=== PATIENT | female | born 1985 | race Caucasian/White ===

== ENCOUNTER 2017-09-20 07:11 | Emergency (ER) | payer BC ==
[~2017-09-20] VITALS: Ht 160 cm; Wt 63.5 kg
[~2017-09-20 07:11] MED LIST: ACETAMINOPHEN-1 EAC1 PO; ALEVE220 MG PO; AZO1 EACH MC; BCP; BUTALB-APAP-CA1 EACH PO; CEFDINIR300 MG PO; CIPRO500 MG PO; CIPROFLOXACIN500 M1 PO; DOXYCYCLINE 10100 M1 PO; FLEXERIL PO; HYDROCODONE-AP1 EAC6 PO; IBUPROFEN 800800 M1 PO; IBUPROFEN 800800 MG PO; LIPITOR 20 MG T20 M1 PO; MEDROLDOSEPACK PO; MOBIC15 MG PO; NAPROSYN500 MG PO; NORCO 5-325 TA1 EAC1 PO; NORCO 5-325 TA1 EACH PO; PHENERGAN 25 MG25 M1 PO; PYRIDIUM100 M1 PO; PYRIDIUM200 M2 PO; ROBAXIN 750 MG750 M1 PO; ROBAXIN500 MG PO; SAVELLA50 MG PO; TRAMADOL 50 MG50 MG PO; ZOFRAN ODT4 MG PO; ZOFRAN4 MG PO
[2017-09-20 08:48] VITALS: BP 121/79
== END 2017-09-20 08:49 | disposition home or self-care (01) ==
LOC: M.ERS 07:11
DX: R51 Headache (principal); F17.210 Nicotine dependence, cigarettes, uncomplicated; E78.00 Pure hypercholesterolemia, unspecified; Z88.2 Allergy status to sulfonamides; Z88.8 Allergy status to other drugs, medicaments and biological substances; Z90.710 Acquired absence of both cervix and uterus; Z98.890 Other specified postprocedural states; Z90.49 Acquired absence of other specified parts of digestive tract

== ENCOUNTER 2017-11-24 15:15 | Emergency (ER) | payer BC ==
[~2017-11-24] VITALS: Ht 160 cm; Wt 63.5 kg
[2017-11-24 15:27] LABS: URINE BILIRUBIN NEGATIVE (Negative); URINE BLOOD NEGATIVE (Negative); URINE CLARITY CLEAR; URINE COLOR YELLOW; URINE GLUCOSE-RANDOM NEGATIVE (Negative); URINE KETONES NEGATIVE (Negative); URINE LEUKOCYTES-REFLEX NEGATIVE (Negative); URINE NITRITE-REFLEX NEGATIVE (Negative); URINE PROTEIN NEGATIVE (Negative); URINE SPECIFIC GRAVITY <= 1.005 (1.005-1.030); URINE UROBILINOGEN 0.2 E.U./dl (0.2-1.0)
[2017-11-24] MEDS ORDERED: HYDROCODONE-AP1 EAC6 PO (15:59)
[2017-11-24] MEDS ORDERED: MEDROLDOSEPACK PO (15:59)
[2017-11-24] MEDS ORDERED: ROBAXIN 750 MG750 M1 PO (15:59)
[2017-11-24 16:14] VITALS: BP 90/59
== END 2017-11-24 16:15 | disposition home or self-care (01) ==
LOC: M.ERS 15:15
PROVIDERS: Physician Assistant
DX: M54.5 Low back pain (principal); E78.00 Pure hypercholesterolemia, unspecified; G43.909 Migraine, unspecified, not intractable, without status migrainosus; F17.210 Nicotine dependence, cigarettes, uncomplicated; Z90.710 Acquired absence of both cervix and uterus; Z87.442 Personal history of urinary calculi; Z90.49 Acquired absence of other specified parts of digestive tract; Z90.89 Acquired absence of other organs; Z88.2 Allergy status to sulfonamides; Z91.018 Allergy to other foods; Z88.8 Allergy status to other drugs, medicaments and biological substances

== ENCOUNTER 2018-01-19 21:04 | Emergency (ER) | payer OTHER ==
[~2018-01-19] VITALS: Ht 162.6 cm; Wt 61.2 kg
[2018-01-19] MEDS ORDERED: TRAMADOL 50 MG50 MG (21:15)
[2018-01-19 21:33] LABS: ABSOLUTE BASOPHILS 0.1 thou/uL (0.0-0.2); ABSOLUTE EOSINOPHILS 0.2 thou/uL (0.0-0.7); ABSOLUTE LYMPHOCYTES 3.9 thou/uL (0.8-5.3); ABSOLUTE MONOCYTES 0.7 thou/uL (0.0-1.2); ABSOLUTE NEUTROPHILS 4.2 thou/uL (1.6-8.1); EOSINOPHILS 2.1 %; HEMATOCRIT 41.1 % (37.0-47.0); HEMOGLOBIN 14.4 gm/dL (12.0-15.0); LYMPHOCYTES 42.7 %; MCH 33.1 pg (26.0-34.0); MCV 94.5 fL (80.0-100.0); MONOCYTES 7.9 %; MPV 7.4 fl. (7.2-11.1); NUCLEATED RBCS 0 /100WBC; PLATELET COUNT* 236 thou/uL (150-400); POLYS 46.3 %; RBC 4.34 mil/uL (4.20-5.00); RDW-CV 12.4 % (10.5-14.5); WBC 9.1 thou/uL (4.0-11.0)
[2018-01-19 21:34] LABS: URINE BILIRUBIN NEGATIVE (Negative); URINE BLOOD NEGATIVE (Negative); URINE CLARITY CLEAR; URINE COLOR YELLOW; URINE GLUCOSE-RANDOM NEGATIVE (Negative); URINE KETONES NEGATIVE (Negative); URINE LEUKOCYTES-REFLEX NEGATIVE (Negative); URINE NITRITE-REFLEX NEGATIVE (Negative); URINE PROTEIN NEGATIVE (Negative); URINE UROBILINOGEN 0.2 E.U./dl (0.2-1.0)
[2018-01-19 21:42] LABS: CALCIUM 8.2 mg/dL (8.5-10.1); CREATININE 0.8 mg/dL (0.6-1.3); POTASSIUM 3.2 mmol/L (3.5-5.1)
[2018-01-19 21:47] LABS: ALBUMIN 4.1 g/dL (3.4-5.0); TOTAL BILIRUBIN 0.2 mg/dL (<0.1-1.0); TOTAL PROTEIN 7.9 g/dL (6.4-8.2)
[2018-01-19] MEDS ORDERED: BENTYL 20 MG TA20 M1 PO (22:30)
[2018-01-19] MEDS ORDERED: CITRATE OF MAG296 ML PO (22:30)
[2018-01-19 22:45] VITALS: BP 128/82
== END 2018-01-19 22:47 | disposition home or self-care (01) ==
LOC: M.ERS 21:04
PROVIDERS: Personal Emergency Response Attendant
DX: K59.00 Constipation, unspecified (principal); E78.00 Pure hypercholesterolemia, unspecified; F17.210 Nicotine dependence, cigarettes, uncomplicated; Z90.710 Acquired absence of both cervix and uterus; Z87.442 Personal history of urinary calculi; Z90.49 Acquired absence of other specified parts of digestive tract; G43.909 Migraine, unspecified, not intractable, without status migrainosus; Z88.1 Allergy status to other antibiotic agents; Z88.8 Allergy status to other drugs, medicaments and biological substances; Z91.018 Allergy to other foods

== ENCOUNTER 2018-02-24 10:18 | Emergency (ER) | payer OTHER ==
[~2018-02-24] VITALS: Ht 157.5 cm; Wt 63.5 kg
[~2018-02-24 10:18] MED LIST changes: +BENTYL 20 MG TA20 M1 PO; +CITRATE OF MAG296 ML PO; +TRAMADOL 50 MG50 MG
[2018-02-24] MEDS ORDERED: MEDROLDOSEPACK PO (11:11)
[2018-02-24 11:25] VITALS: BP 110/73
== END 2018-02-24 11:25 | disposition home or self-care (01) ==
LOC: M.ERS 10:18
DX: J02.9 Acute pharyngitis, unspecified (principal); G43.909 Migraine, unspecified, not intractable, without status migrainosus; E78.00 Pure hypercholesterolemia, unspecified; F17.210 Nicotine dependence, cigarettes, uncomplicated; Z88.1 Allergy status to other antibiotic agents; Z88.8 Allergy status to other drugs, medicaments and biological substances; Z91.018 Allergy to other foods; Z90.710 Acquired absence of both cervix and uterus; Z90.49 Acquired absence of other specified parts of digestive tract; Z87.442 Personal history of urinary calculi

== ENCOUNTER 2018-03-18 18:38 | Emergency (ER) | payer OTHER ==
[~2018-03-18] VITALS: Ht 162.6 cm; Wt 63.5 kg
[2018-03-18 19:16] LABS: ABSOLUTE BASOPHILS 0.1 thou/uL (0.0-0.2); ABSOLUTE EOSINOPHILS 0.1 thou/uL (0.0-0.7); ABSOLUTE LYMPHOCYTES 2.6 thou/uL (0.8-5.3); ABSOLUTE MONOCYTES 0.8 thou/uL (0.0-1.2); ABSOLUTE NEUTROPHILS 3.8 thou/uL (1.6-8.1); BASOPHILS 0.9 %; EOSINOPHILS 1.2 %; HEMATOCRIT 41.7 % (37.0-47.0); HEMOGLOBIN 14.3 gm/dL (12.0-15.0); LYMPHOCYTES 34.8 %; MCHC 34.4 g/dL (28.0-37.0); MCV 95.9 fL (80.0-100.0); MONOCYTES 11.2 %; MPV 7.5 fl. (7.2-11.1); NUCLEATED RBCS 0 /100WBC; PLATELET COUNT* 235 thou/uL (150-400); POLYS 51.9 %; RBC 4.34 mil/uL (4.20-5.00); RDW-CV 12.6 % (10.5-14.5); WBC 7.4 thou/uL (4.0-11.0)
[2018-03-18 19:29] LABS: CALCIUM 8.7 mg/dL (8.5-10.1); CREATININE 0.6 mg/dL (0.6-1.3); POTASSIUM 3.8 mmol/L (3.5-5.1)
[2018-03-18 19:34] LABS: ALBUMIN 3.9 g/dL (3.4-5.0); TOTAL BILIRUBIN 0.3 mg/dL (<0.1-1.0)
[2018-03-18 19:44] LABS: URINE BILIRUBIN NEGATIVE (Negative); URINE BLOOD TRACE (Negative); URINE CLARITY CLEAR; URINE COLOR YELLOW; URINE GLUCOSE-RANDOM NEGATIVE (Negative); URINE KETONES NEGATIVE (Negative); URINE LEUKOCYTES-REFLEX NEGATIVE (Negative); URINE NITRITE-REFLEX NEGATIVE (Negative); URINE PROTEIN NEGATIVE (Negative); URINE SPECIFIC GRAVITY 1.015 (1.005-1.030); URINE UROBILINOGEN 0.2 E.U./dl (0.2-1.0)
[2018-03-18] MEDS ORDERED: PROAIR HFA8.5 GM INH (19:44)
[2018-03-18] MEDS ORDERED: PROMETHAZINE V473 ML PO (19:44)
[2018-03-18] MEDS ORDERED: PHENERGAN12.5 M2 RECTAL (19:44)
[2018-03-18] MEDS ORDERED: KEFLEX500 M1 PO (19:44)
[2018-03-18] MEDS ORDERED: TESSALON PERLE100 MG PO (19:44)
[2018-03-18 19:51] LABS: BACTERIA-REFLEX 1-9 Few /HPF (None Seen); CASTS None Seen /LPF (None Seen); CRYSTALS None Seen /LPF (None Seen); SQUAMOUS >10 Many /LPF (0-3); URINE RBC 3-10 Few /HPF (0-2); URINE WBC-REFLEX 0-5 Rare /HPF (0-5)
[2018-03-18 19:57] VITALS: BP 100/54
== END 2018-03-18 19:58 | disposition home or self-care (01) ==
LOC: M.ERS 18:38
PROVIDERS: Physician Assistant
DX: J20.9 Acute bronchitis, unspecified (principal); R11.2 Nausea with vomiting, unspecified; E78.00 Pure hypercholesterolemia, unspecified; G43.909 Migraine, unspecified, not intractable, without status migrainosus; F17.210 Nicotine dependence, cigarettes, uncomplicated; Z90.710 Acquired absence of both cervix and uterus; Z87.442 Personal history of urinary calculi; Z90.49 Acquired absence of other specified parts of digestive tract; Z88.1 Allergy status to other antibiotic agents; Z91.018 Allergy to other foods

== ENCOUNTER 2018-04-17 15:42 | Emergency (ER) | payer BC ==
[~2018-04-17] VITALS: Ht 157.5 cm; Wt 63.5 kg
[~2018-04-17 15:42] MED LIST changes: +KEFLEX500 M1 PO; +PHENERGAN12.5 M2 RECTAL; +PROAIR HFA8.5 GM INH; +PROMETHAZINE V473 ML PO; +TESSALON PERLE100 MG PO
[2018-04-17 16:06] LABS: URINE CLARITY CLEAR; URINE COLOR AMBER
[2018-04-17 16:25] LABS: MUCUS None Seen strn/LPF (None Seen)
[2018-04-17 16:26] LABS: BACTERIA 1-9 Few /HPF (None Seen); CASTS None Seen /LPF (None Seen); CRYSTALS None Seen /LPF (None Seen); URINE RBC 3-10 Few /HPF (0-2); WBC CLUMPS Few (None Seen)
[2018-04-17 16:27] LABS: SQUAMOUS 4-10 Moderate /LPF (0-3)
[2018-04-17 16:28] LABS: ACETEST (KETONE CONFIRMATORY) Negative (Negative); ICTOTEST (BILI CONFIRMATORY) Negative (Negative); SSA (PROTEIN CONFIRMATORY) NEGATIVE (Negative); URINE REDUCING SUBSTANCE NEGATIVE (Negative); URINE SPECIFIC GRAVITY 1.014 (1.005-1.030)
[2018-04-17] MEDS ORDERED: NABUMETONE 750750 M1 PO (16:57)
[2018-04-17] MEDS ORDERED: ONDANSETRON HCL4 M2 PO (16:57)
[2018-04-17] MEDS ORDERED: LEVAQUIN 500 M500 M2 PO (16:57)
[2018-04-17] MEDS ORDERED: NORCO 5-325 TA1 EACH PO (16:57)
[2018-04-17 17:10] VITALS: BP 109/55
== END 2018-04-17 17:11 | disposition home or self-care (01) ==
LOC: M.ERS 15:42
PROVIDERS: Nurse Practitioner Family
DX: N39.0 Urinary tract infection, site not specified (principal); G43.909 Migraine, unspecified, not intractable, without status migrainosus; E78.00 Pure hypercholesterolemia, unspecified; Z90.49 Acquired absence of other specified parts of digestive tract; Z90.710 Acquired absence of both cervix and uterus; F17.210 Nicotine dependence, cigarettes, uncomplicated; Z88.1 Allergy status to other antibiotic agents; Z88.8 Allergy status to other drugs, medicaments and biological substances

== ENCOUNTER 2018-05-17 12:55 | Emergency (ER) | payer BC ==
[~2018-05-17] VITALS: Ht 162.6 cm; Wt 63.5 kg
[~2018-05-17 12:55] MED LIST changes: +LEVAQUIN 500 M500 M2 PO; +NABUMETONE 750750 M1 PO; +ONDANSETRON HCL4 M2 PO
[2018-05-17 13:24] LABS: URINE BILIRUBIN NEGATIVE (Negative); URINE BLOOD NEGATIVE (Negative); URINE CLARITY CLEAR; URINE COLOR YELLOW; URINE GLUCOSE-RANDOM NEGATIVE (Negative); URINE KETONES TRACE (Negative); URINE LEUKOCYTES-REFLEX NEGATIVE (Negative); URINE NITRITE-REFLEX NEGATIVE (Negative); URINE PROTEIN TRACE (Negative); URINE SPECIFIC GRAVITY 1.025 (1.005-1.030); URINE UROBILINOGEN 0.2 E.U./dl (0.2-1.0)
[2018-05-17] MEDS ORDERED: ZOFRAN ODT4 MG PO (13:44)
[2018-05-17 13:55] VITALS: BP 138/57
== END 2018-05-17 14:03 | disposition home or self-care (01) ==
LOC: M.ERS 12:55
PROVIDERS: Nurse Practitioner Family
DX: K52.9 Noninfective gastroenteritis and colitis, unspecified (principal); G43.909 Migraine, unspecified, not intractable, without status migrainosus; E78.00 Pure hypercholesterolemia, unspecified; F17.210 Nicotine dependence, cigarettes, uncomplicated; Z88.2 Allergy status to sulfonamides; Z88.8 Allergy status to other drugs, medicaments and biological substances; Z91.018 Allergy to other foods; Z90.710 Acquired absence of both cervix and uterus; Z87.442 Personal history of urinary calculi; Z90.49 Acquired absence of other specified parts of digestive tract

== ENCOUNTER 2018-09-03 22:54 | Emergency (ER) | payer OTHER ==
[~2018-09-03] VITALS: Ht 157.5 cm; Wt 63.5 kg
[2018-09-03 23:00] VITALS: BP 116/80
[2018-09-03 23:16] LABS: URINE BILIRUBIN NEGATIVE (Negative); URINE BLOOD 1+ (Negative); URINE CLARITY CLEAR; URINE COLOR YELLOW; URINE GLUCOSE-RANDOM NEGATIVE (Negative); URINE KETONES NEGATIVE (Negative); URINE LEUKOCYTES-REFLEX NEGATIVE (Negative); URINE NITRITE-REFLEX NEGATIVE (Negative); URINE PROTEIN NEGATIVE (Negative); URINE UROBILINOGEN 0.2 E.U./dl (0.2-1.0)
[2018-09-03 23:22] LABS: ABSOLUTE BASOPHILS 0.1 thou/uL (0.0-0.2); ABSOLUTE EOSINOPHILS 0.2 thou/uL (0.0-0.7); ABSOLUTE LYMPHOCYTES 3.7 thou/uL (0.8-5.3); ABSOLUTE MONOCYTES 0.6 thou/uL (0.0-1.2); ABSOLUTE NEUTROPHILS 4.5 thou/uL (1.6-8.1); BASOPHILS 0.8 %; EOSINOPHILS 1.9 %; HEMOGLOBIN 13.6 gm/dL (12.0-15.0); LYMPHOCYTES 40.7 %; MCH 33.4 pg (26.0-34.0); MCHC 34.8 g/dL (28.0-37.0); MCV 96.1 fL (80.0-100.0); MONOCYTES 6.9 %; MPV 7.5 fl. (7.2-11.1); NUCLEATED RBCS 0 /100WBC; PLATELET COUNT* 225 thou/uL (150-400); POLYS 49.7 %; RBC 4.06 mil/uL (4.20-5.00); RDW-CV 12.7 % (10.5-14.5); WBC 9.1 thou/uL (4.0-11.0)
[2018-09-03 23:22] LABS: SQUAMOUS NONE SEEN /LPF (0-3); URINE RBC 0-2 Rare /HPF (0-2); URINE WBC-REFLEX None Seen /HPF (0-5)
[2018-09-03 23:23] LABS: BACTERIA-REFLEX None Seen /HPF (None Seen); CASTS None Seen /LPF (None Seen); CRYSTALS None Seen /LPF (None Seen)
[2018-09-03 23:26] LABS: CALCIUM 8.3 mg/dL (8.5-10.1); POTASSIUM 3.4 mmol/L (3.5-5.1)
[2018-09-03] MEDS ORDERED: PYRIDIUM200 M2 PO (23:38)
[2018-09-03] MEDS ORDERED: KEFLEX500 M1 PO (23:38)
[2018-09-03] MEDS ORDERED: HYDROCODON-ACE1 EAC7 PO (23:38)
== END 2018-09-03 23:46 | disposition home or self-care (01) ==
LOC: M.ERS 22:54
PROVIDERS: Personal Emergency Response Attendant
DX: R30.0 Dysuria (principal); E78.00 Pure hypercholesterolemia, unspecified; G43.909 Migraine, unspecified, not intractable, without status migrainosus; F17.210 Nicotine dependence, cigarettes, uncomplicated; Z88.2 Allergy status to sulfonamides; Z88.8 Allergy status to other drugs, medicaments and biological substances; Z91.018 Allergy to other foods; Z90.710 Acquired absence of both cervix and uterus; Z87.442 Personal history of urinary calculi; Z90.49 Acquired absence of other specified parts of digestive tract

== ENCOUNTER 2019-11-24 19:31 | Emergency (ER) | payer OTHER ==
[~2019-11-24] VITALS: Ht 157.5 cm; Wt 63.5 kg
[~2019-11-24 19:31] MED LIST changes: +HYDROCODON-ACE1 EAC7 PO
[2019-11-24 20:15] LABS: INFLUENZA A ANTIGEN Negative (Negative); INFLUENZA B ANTIGEN Negative (Negative)
[2019-11-24 20:57] VITALS: BP 117/79
== END 2019-11-24 20:57 | disposition left against medical advice (07) ==
LOC: M.ERS 19:31
PROVIDERS: Emergency Medicine
DX: Z53.21 Procedure and treatment not carried out due to patient leaving prior to being seen by health care provider (principal)

== ENCOUNTER 2020-09-18 12:53 | Emergency (ER) | payer OTHER ==
[~2020-09-18] VITALS: Ht 157.5 cm; Wt 68.0 kg
[2020-09-18] MEDS ORDERED: ONDANSETRON ODT4 MG PO (13:08)
[2020-09-18 13:19] LABS: URINE BILIRUBIN NEGATIVE (Negative); URINE BLOOD NEGATIVE (Negative); URINE CLARITY CLEAR; URINE COLOR YELLOW; URINE GLUCOSE-RANDOM NEGATIVE (Negative); URINE KETONES NEGATIVE (Negative); URINE LEUKOCYTES NEGATIVE (Negative); URINE NITRITE NEGATIVE (Negative); URINE PROTEIN NEGATIVE (Negative); URINE UROBILINOGEN 0.2 E.U./dl (0.2-1.0)
[2020-09-18 13:21] LABS: ABSOLUTE BASOPHILS 0.1 thou/uL (0.0-0.2); ABSOLUTE EOSINOPHILS 0.1 thou/uL (0.0-0.7); ABSOLUTE LYMPHOCYTES 5.2 thou/uL (0.8-5.3); ABSOLUTE MONOCYTES 0.8 thou/uL (0.0-1.2); ABSOLUTE NEUTROPHILS 3.5 thou/uL (1.6-8.1); BASOPHILS 0.6 %; EOSINOPHILS 1.5 %; HEMATOCRIT 40.6 % (37.0-47.0); HEMOGLOBIN 14.1 gm/dL (12.0-15.0); LYMPHOCYTES 53.8 %; MCH 33.2 pg (26.0-34.0); MCHC 34.6 g/dL (28.0-37.0); MCV 95.8 fL (80.0-100.0); MONOCYTES 8.4 %; MPV 7.5 fl. (7.2-11.1); NUCLEATED RBCS 0 /100WBC; PLATELET COUNT* 252 thou/uL (150-400); POLYS 35.7 %; RBC 4.24 mil/uL (4.20-5.00); RDW-CV 12.9 % (10.5-14.5); WBC 9.7 thou/uL (4.0-11.0)
[2020-09-18 13:27] LABS: AMP/METHAMP Negative (Negative); BARBITURATES POSITIVE (Negative); BENZODIAZEPINES Negative (Negative); COCAINE Negative (Negative); METHADONE Negative (Negative); OPIATES Negative (Negative); PCP Negative (Negative); THC Negative (Negative)
[2020-09-18 13:36] LABS: CREATININE 0.8 mg/dL (0.6-1.3); POTASSIUM 3.8 mmol/L (3.5-5.1)
[2020-09-18 13:41] LABS: ALBUMIN 3.8 g/dL (3.4-5.0); TOTAL BILIRUBIN 0.2 mg/dL (<0.1-1.0); TOTAL PROTEIN 6.9 g/dL (6.4-8.2)
[2020-09-18 15:46] VITALS: BP 128/84
--- NOTE | 2020-09-19 10:09 | EKG ---
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: : 1985 Requested By: Jorge Singer Order Number: [id number] MD: Hector Pop Measurements Intervals [place] Rate: 103 P: 50 UT: 186 QRS: 86 QRSD: 118 T: 33 QT: 379 QTc: 496 Interpretive Statements Sinus tachycardia Probable left atrial enlargement Incomplete right bundle branch block Low voltage, precordial leads No previous ECG available for comparison Electronically Signed On 09-19-2020 10:09:17 DIABETES PHYSICIAN by Hector Pop [email or web address] <ELECTRONICALLY SIGNED> By: Hector Pop MD, FAC 09/19/20 1009 1351 1351 Hector Pop MD, [facility] /EPI
== END 2020-09-18 15:47 | disposition home or self-care (01) ==
LOC: M.ERS 12:53
PROVIDERS: Emergency Medicine
DX: G43.809 Other migraine, not intractable, without status migrainosus (principal); F17.210 Nicotine dependence, cigarettes, uncomplicated; Z90.710 Acquired absence of both cervix and uterus; Z90.89 Acquired absence of other organs; Z79.899 Other long term (current) drug therapy; Z88.2 Allergy status to sulfonamides; Z91.018 Allergy to other foods

== ENCOUNTER 2020-11-11 00:23 | Emergency (ER) | payer OTHER ==
[~2020-11-11] VITALS: Ht 157.5 cm; Wt 66.2 kg
[~2020-11-11 00:23] MED LIST changes: +ONDANSETRON ODT4 MG PO
[2020-11-11] MEDS ORDERED: PROZAC20 MG PO (00:30)
[2020-11-11 00:42] LABS: ABSOLUTE BASOPHILS 0.1 thou/uL (0.0-0.2); ABSOLUTE LYMPHOCYTES 3.4 thou/uL (0.8-5.3); ABSOLUTE MONOCYTES 0.6 thou/uL (0.0-1.2); ABSOLUTE NEUTROPHILS 3.7 thou/uL (1.6-8.1); BASOPHILS 0.7 %; EOSINOPHILS 0.6 %; HEMATOCRIT 38.6 % (37.0-47.0); HEMOGLOBIN 13.3 gm/dL (12.0-15.0); LYMPHOCYTES 44.2 %; MCHC 34.6 g/dL (28.0-37.0); MCV 95.6 fL (80.0-100.0); MONOCYTES 7.4 %; MPV 7.2 fl. (7.2-11.1); NUCLEATED RBCS 0 /100WBC; PLATELET COUNT* 206 thou/uL (150-400); POLYS 47.1 %; RBC 4.04 mil/uL (4.20-5.00); RDW-CV 12.6 % (10.5-14.5); WBC 7.8 thou/uL (4.0-11.0)
[2020-11-11 00:55] LABS: APTT 30.6 Seconds (25.0-31.3); INR 1.1; PROTIME 11.4 Seconds (9.20-11.50)
[2020-11-11 01:09] LABS: CREATININE 0.9 mg/dL (0.6-1.3); POTASSIUM 3.7 mmol/L (3.5-5.1)
[2020-11-11 01:14] LABS: ALBUMIN 4.1 g/dL (3.4-5.0); TOTAL BILIRUBIN 0.3 mg/dL (<0.1-1.0); TOTAL PROTEIN 7.1 g/dL (6.4-8.2)
[2020-11-11 03:25] LABS: URINE BILIRUBIN NEGATIVE (Negative); URINE BLOOD NEGATIVE (Negative); URINE CLARITY CLEAR; URINE COLOR YELLOW; URINE GLUCOSE-RANDOM NEGATIVE (Negative); URINE KETONES NEGATIVE (Negative); URINE LEUKOCYTES-REFLEX NEGATIVE (Negative); URINE NITRITE-REFLEX NEGATIVE (Negative); URINE PROTEIN NEGATIVE (Negative); URINE UROBILINOGEN 0.2 E.U./dl (0.2-1.0)
[2020-11-11 03:33] LABS: AMP/METHAMP Negative (Negative); BARBITURATES POSITIVE (Negative); BENZODIAZEPINES Negative (Negative); COCAINE Negative (Negative); METHADONE Negative (Negative); OPIATES POSITIVE (Negative); PCP Negative (Negative); THC Negative (Negative)
[2020-11-11 03:49] VITALS: BP 102/58
--- NOTE | 2020-11-11 09:35 | EKG ---
[place] [address] ELECTROCARDIOGRAM REPORT Name: FILEMONJAMILWHIT N Room: [facility] [place])#: [id number] Admission: 11/11/20 Attend Phys: Discharge: 11/11/20 Date of : 83 Date of Service: 11/11/20 0027 Report #: [id number] THIS REPORT FOR: //name// [facility] ED Test Date: 2020-11-11 Test Time: 00:27:59 Pat Name: WHIT COLBERT Department: Room: Gender: Swager Operator: DERRICK Truong : 1985 Requested By: Anu Bower Order Number: [id number] MD: Jose Radford Measurements Intervals [place] Rate: 97 P: 42 SD: 169 QRS: 75 QRSD: 142 T: 24 QT: 404 QTc: 513 Interpretive Statements Sinus rhythm Right bundle branch block Compared to ECG 09/18/2020 13:51:11 Sinus tachycardia no longer present Electronically Signed On 11-11-2020 9:35:15 HIM ASSISTANT by Jose Radford [email or web address] <ELECTRONICALLY SIGNED> By: Jose Radford MD, [facility] 11/11/20 0935 0027 0027 Jose Radford MD, [facility] /EPI
--- NOTE | 2020-11-11 09:36 | EKG ---
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: DERRICK Truong : 1985 Requested By: Anu Bower Order Number: [id number] MD: oJse Radford Measurements Intervals [place] Rate: 93 P: 56 [place]: 208 QRS: 91 QRSD: 132 T: 40 QT: 400 QTc: 498 Interpretive Statements Sinus rhythm Right bundle branch block Compared to ECG 11/11/2020 00:27:59 no change Electronically Signed On 11-11-2020 9:36:12 CAP SIZER by Jose Radford [email or web address] <ELECTRONICALLY SIGNED> By: Jose Radford MD, [facility] 11/11/20 0936 0047 0047 Jose Radford MD, [facility] /EPI
== END 2020-11-11 03:49 | disposition home or self-care (01) ==
LOC: M.ERS 00:23
PROVIDERS: Personal Emergency Response Attendant
DX: R56.9 Unspecified convulsions (principal); Z20.822 Contact with and (suspected) exposure to COVID-19; E78.00 Pure hypercholesterolemia, unspecified; G43.909 Migraine, unspecified, not intractable, without status migrainosus; F17.210 Nicotine dependence, cigarettes, uncomplicated; Z91.018 Allergy to other foods; Z90.710 Acquired absence of both cervix and uterus; Z87.442 Personal history of urinary calculi; Z90.49 Acquired absence of other specified parts of digestive tract; Z88.2 Allergy status to sulfonamides; Z88.8 Allergy status to other drugs, medicaments and biological substances; Z90.89 Acquired absence of other organs

== ENCOUNTER 2020-11-21 10:46 | Emergency (ER) | payer OTHER ==
[~2020-11-21] VITALS: Ht 157.5 cm; Wt 65.8 kg
[~2020-11-21 10:46] MED LIST changes: +PROZAC20 MG PO
[2020-11-21 11:33] LABS: URINE BILIRUBIN NEGATIVE (Negative); URINE BLOOD NEGATIVE (Negative); URINE CLARITY CLEAR; URINE COLOR YELLOW; URINE GLUCOSE-RANDOM NEGATIVE (Negative); URINE KETONES NEGATIVE (Negative); URINE LEUKOCYTES-REFLEX NEGATIVE (Negative); URINE NITRITE-REFLEX NEGATIVE (Negative); URINE PROTEIN NEGATIVE (Negative); URINE SPECIFIC GRAVITY <= 1.005 (1.005-1.030); URINE UROBILINOGEN 0.2 E.U./dl (0.2-1.0)
[2020-11-21 11:40] LABS: ABSOLUTE BASOPHILS 0.1 thou/uL (0.0-0.2); ABSOLUTE LYMPHOCYTES 2.6 thou/uL (0.8-5.3); ABSOLUTE MONOCYTES 0.4 thou/uL (0.0-1.2); ABSOLUTE NEUTROPHILS 2.7 thou/uL (1.6-8.1); BASOPHILS 0.9 %; EOSINOPHILS 0.6 %; HEMATOCRIT 37.5 % (37.0-47.0); HEMOGLOBIN 12.8 gm/dL (12.0-15.0); LYMPHOCYTES 44.4 %; MCH 33.1 pg (26.0-34.0); MCHC 34.2 g/dL (28.0-37.0); MCV 96.8 fL (80.0-100.0); MONOCYTES 7.6 %; MPV 6.9 fl. (7.2-11.1); NUCLEATED RBCS 0 /100WBC; PLATELET COUNT* 215 thou/uL (150-400); POLYS 46.5 %; RBC 3.87 mil/uL (4.20-5.00); RDW-CV 12.9 % (10.5-14.5); WBC 5.8 thou/uL (4.0-11.0)
[2020-11-21 11:54] LABS: APTT 34.3 Seconds (25.0-31.3); INR 1.1; PROTIME 11.4 Seconds (9.20-11.50)
[2020-11-21 11:59] LABS: CALCIUM 8.2 mg/dL (8.5-10.1); CREATININE 0.7 mg/dL (0.6-1.3); POTASSIUM 4.1 mmol/L (3.5-5.1)
[2020-11-21 12:04] LABS: ALBUMIN 3.9 g/dL (3.4-5.0); TOTAL BILIRUBIN 0.3 mg/dL (<0.1-1.0); TOTAL PROTEIN 6.9 g/dL (6.4-8.2)
[2020-11-21 13:50] VITALS: BP 96/65
--- NOTE | 2020-11-21 15:53 | EKG ---
[place] [address] ELECTROCARDIOGRAM REPORT Name: JAMIL COLBERTGYPSY Sewell Room: [facility]#: [id number] Admission: 11/21/20 Attend Phys: Discharge: 11/21/20 Date of : 83 Date of Service: 11/21/20 1117 Report #: [id number] THIS REPORT FOR: //name// [facility] ED Test Date: 2020-11-21 Test Time: 11:17:38 Pat Name: WHIT COLBERT Department: Room: Gender: Steeple Jack: SCAR : 1985 Requested By: Laurent Rowley Order Number: [id number] MD: Jose Radford Measurements Intervals [place] Rate: 82 P: 61 [place]: 187 QRS: 89 QRSD: 136 T: 55 QT: 444 QTc: 519 Interpretive Statements Sinus rhythm Right bundle branch block Compared to ECG 11/11/2020 00:47:38 no change Electronically Signed On 11-21-2020 15:53:23 CDT by Jose Radford [email or web address] <ELECTRONICALLY SIGNED> By: Jose Radford MD, FAC 11/21/20 1553 1117 1117 Jose Radford MD, [facility] /EPI
== END 2020-11-21 13:50 | disposition left against medical advice (07) ==
LOC: M.ERS 10:46
PROVIDERS: Emergency Medicine Emergency Medical Services
DX: I63.9 Cerebral infarction, unspecified (principal); I49.8 Other specified cardiac arrhythmias; E78.00 Pure hypercholesterolemia, unspecified; G43.909 Migraine, unspecified, not intractable, without status migrainosus; F17.210 Nicotine dependence, cigarettes, uncomplicated; Z88.2 Allergy status to sulfonamides; Z91.018 Allergy to other foods; Z90.710 Acquired absence of both cervix and uterus; Z87.442 Personal history of urinary calculi; Z90.89 Acquired absence of other organs; Z90.49 Acquired absence of other specified parts of digestive tract